=== PATIENT | female | born 1985 | race Caucasian/White ===

== ENCOUNTER 2021-03-04 11:51 | Emergency (ER) | payer BC, SELFPAY ==
--- NOTE | 2021-03-04 11:54 | ED.URI ---
HPI - URI/Sore Throat General Chief Complaint: Upper Respiratory Infection Stated Complaint: loss of voice/congestion Time Seen by Provider: 03/04/21 11:55 Source: patient and RN notes reviewed History of Present Illness HPI Narrative: Patient is 35-year-old female who presents the urgent care with complaints of chest congestion and voice loss. Patient states it started on Thursday with a voice loss in the congestion this morning. Patient did do a rapid Covid test at home today which was negative. Patient has had a Covid vaccine and denies of any recent exposures. States that her whole family has been sick on and off this past week and everyone has been negative for strep, influenza and Covid. Patient states that she has taken Tylenol once but otherwise no use of [id number] medications. Denies of any fever, chills, nausea, vomiting. No other acute complaints. No acute distress noted. Patient read the plan of care. Some parts of this dictation were generated by voice recognition software and may contain typographical and/or grammatical inaccuracies. Related Data Home Medications Medication Instructions Recorded Confirmed norethindrone (contraceptive) mg 03/04/21 Allergies Allergy/AdvReac Type Severity Reaction Status Date / Time Cephalosporins Allergy Mild Verified 08/05/10 11:17 penicillin G Allergy Mild Verified 08/05/10 18:46 Sulfa (Sulfonamide Allergy Mild Verified 08/05/10 18:46 Antibiotics) Review of Systems Review of Systems: CONSTITUTIONAL: Reports a 1 episode of low-grade fever EYES: Denies visual changes, redness, or discharge. ENT: Reports of sore throat and hoarseness CARDIOVASCULAR: Denies chest pain, palpitations, or edema. RESPIRATORY: Denies cough or dyspnea. GASTROINTESTINAL: Denies abdominal pain, nausea, vomiting, or diarrhea. GENITOURINARY: Denies dysuria or hematuria. SKIN: Denies rash or itching. MUSCULOSKELETAL: Denies back pain, joint pain, or myalgia. NEUROLOGIC: Denies headache, numbness, or weakness. All other systems reviewed are negative, except as documented in HPI. PMFSH Comments At the time of my signature, I reviewed and agree with the nursing past medical, surgical, social, and family history. There is no relevant family history pertinent to the patient complaint. Exam Narrative: GENERAL: This is a well-nourished, well-developed patient, in no apparent distress. HEAD: normocephalic, atraumatic. EYES: PERRL. Sclera clear/white. Vision is grossly intact. EARS: External ears normal, auditory canals clear and without drainage, TMs normal without perforation. Hearing grossly intact. NOSE: External nose normal with no obvious nasal discharge, nares without redness, clear rhinorrhea. THROAT: Mucous membranes moist, posterior pharynx clear. Moderate postnasal drainage. Hoarse voice NECK: Neck supple, non-tender without lymphadenopathy CARDIOVASCULAR: Regular rate and rhythm without murmurs, gallops, or rubs. RESPIRATORY: Clear to auscultation. Breath sounds equal bilaterally. No wheezes, rales, or rhonchi. SKIN: warm, intact with no suspicious lesions or rash, good texture and turgor. NEURO: awake, alert, and oriented to person, place and time. There were no obvious focal neurologic abnormalities. EXTREMITIES: No clubbing, cyanosis, or edema. Course Vital Signs Vital signs: Vital Signs Temperature 97.8 F 03/04/21 12:00 Pulse Rate 95 03/04/21 12:00 Respiratory Rate 18 03/04/21 12:00 Blood Pressure 130/88 03/04/21 12:00 Pulse Oximetry 99 03/04/21 12:00 Temperature 97.8 F 03/04/21 12:02 Pulse Rate 95 03/04/21 12:02 Respiratory Rate 18 03/04/21 12:02 Blood Pressure 130/88 03/04/21 12:02 Pulse Oximetry 99 03/04/21 12:02 Reviewed MDM - URI/Sore Throat MDM Narrative Medical decision making narrative: Reviewed lab results with the patient. She is aware that strep swab was negative. We will send the PCR Covid swab to the lab and call
[2021-03-04 12:00] VITALS: BP 130/88; PULSE 95; RESP 18; TEMP 36.6; O2SAT 99
[2021-03-04 12:02] VITALS: BP 130/88; PULSE 95; RESP 18; TEMP 36.6; O2SAT 99
[2021-03-06 19:29] LABS: SARS-CoV-2 RNA PCR Negative
== END 2021-03-04 12:33 | disposition home or self-care (01) ==
PROVIDERS: Emergency Provider Nurse Practitioner Family
DX: J04.0 Acute laryngitis (principal); J02.9 Acute pharyngitis, unspecified; Z20.822 Contact with and (suspected) exposure to COVID-19
CPT/HCPCS: 87081; 87880; 99213; C9803; G0463; U0003; U0005

== ENCOUNTER 2021-05-31 13:42 | Emergency (ER) | payer BC, SELFPAY ==
[2021-05-31 13:50] VITALS: BP 132/73; PULSE 80; RESP 16; TEMP 36.3; O2SAT 99
--- NOTE | 2021-05-31 13:55 | ED.URI ---
HPI - URI/Sore Throat General Chief Complaint: Upper Respiratory Infection Stated Complaint: SINUS CONGESTION/SOB/COUGH Time Seen by Provider: 05/31/21 13:58 Source: patient, RN notes reviewed and old records reviewed Mode of arrival: ambulatory Limitations: no limitations History of Present Illness HPI Narrative: 35year old female who presents to [facility] care with complaints of cough, sinus congestion, sore throat especially when she swallows for past 1-2 days. Patient denies any know fevers chills or sweats or any body aches. Patient has had COVID vaccinations and Booster and also flu shot this year. Patient reports that cough is frequent with some sputum production.Patient states that she has taken Claritin and has tried DayQuil with no improvement in her symptoms. Patient reports that family had stomach flu 2 weeks ago no one presently ill in household. Reports that she did home COVID test which was negative. MD elicited complaint: cough, sore throat, rhinorrhea and nasal congestion Severity: moderate Pain scale (0-10): 4 Description of mucous: clear and green Able to tolerate fluids by mouth: Yes Exacerbating factors: swallowing Treatments prior to arrival: other (Claritin an Dayquil) Related Data Home Medications Medication Instructions Recorded Confirmed norethindrone (contraceptive) mg 03/04/21 Allergies Allergy/AdvReac Type Severity Reaction Status Date / Time Cephalosporins Allergy Mild Verified 08/05/10 11:17 penicillin G Allergy Mild Verified 08/05/10 18:46 Sulfa (Sulfonamide Allergy Mild Verified 08/05/10 18:46 Antibiotics) Review of Systems Review of Systems: CONSTITUTIONAL: Denies fever, chills, or sweats. EYES: Denies visual changes, redness, or discharge. ENT: Positive rhinorrhea, congestion, sore throat, no otalgia. CARDIOVASCULAR: Denies chest pain, palpitations, or edema. RESPIRATORY: Positive cough some dyspnea with coughing GASTROINTESTINAL: Denies abdominal pain, nausea, vomiting, or diarrhea. GENITOURINARY: Denies dysuria or hematuria. SKIN: Denies rash or itching. MUSCULOSKELETAL: Denies back pain, joint pain, or myalgia. NEUROLOGIC: Denies headache, numbness, or weakness. PSYCHIATRIC: Denies anxiety or depression. All systems reviewed & are unremarkable except as noted in HPI and below PMFSH Past Medical History Medical History (Updated 06/01/21 @ 00:15 by Bethany Lorenzo NP) Ulcerative colitis Surgical History Surgical History (Updated 06/01/21 @ 00:17 by Bethany Lorenzo NP) No history of previous surgery Social History Social History (Updated 06/01/21 @ 00:17 by Bethany Lorenzo NP) Smoking status: Never smoker Alcohol intake: current Alcohol use details: rare social Substance use: never Living arrangements: with family Gender identity (if verbalized by the patient): Female Comments At time of signature, agree with nursing past medical, surgical, social and family history. There is no relevant family history pertinent to the presenting complaint Exam Narrative: GENERAL: Well-appearing, well-nourished,obese and in no acute distress. HEAD: Normocephalic, atraumatic. EYES: PERRLA and EOMI. ENT: Nares red with clear noted rhinorrhea no epistaxis. Mucous membranes moist.TM's normal with good light reflex, throat red with no lesions or exudates, no tonsil enlargement. NECK: Supple. no lymphadenopathy CHEST: Clear to auscultation. No respiratory distress.productive cough no tachypnea able to speak in full sentences with SAO2 99% on room air HEART: Regular rate and rhythm. No murmur heard. Normal peripheral pulses. ABDOMEN: Soft, nontender, nondistended, normal active bowel sounds. EXTREMITIES: Normal range of motion. No edema. SKIN: Warm, dry, no rash. NEURO: No focal deficits. Alert and oriented x3. Course Course Level of Care: Express Care Visit Vital Signs Vital signs: Vital Signs Temperature 36.3 C L 05/31/21 13:50 Pulse Rate 80
== END 2021-05-31 14:23 | disposition home or self-care (01) ==
PROVIDERS: Emergency Provider Registered Nurse
DX: J06.9 Acute upper respiratory infection, unspecified (principal)
CPT/HCPCS: 87081; 87880; 99213; G0463